=== PATIENT | female | born 1935 | race Caucasian/White ===

== ENCOUNTER 2017-08-19 14:06 | Observation (INO) | payer MEDICARE, BC ==
[~2017-08-19 14:06] MED LIST: ACETAMINOPHEN500 M1 PO; HCTZ25 MG PO; METAMUCIL PACKE1 PKT PO; TEMAZEPAM PO; TEMAZEPAM30 MG PO; ULTRAM50 MG PO
--- NOTE | 2017-08-19 15:15 | NUR ---
RECIEVED PT TO ROOM [address] POTTER'S OFFICE DIRECT ADMISSION. PIV SITED TO LEFT INNER FORARM 22 GA X 1 STICK TOLERATED WELL.
[2017-08-19 16:03] LABS: BASOPHILS 0.3 % (0-2); EOSINOPHILS 0.8 % (0-7); HEMATOCRIT 37.4 % (36.0-48.0); HEMOGLOBIN 12.2 g/dL (12-16); IMMATURE GRANULOCYTES 0.3 % (0-5); LYMPHOCYTES 26.7 % (15-50); MCH 33.1 pg (26.0-34.0); MCHC 32.6 g/dL (31.0-37.0); MCV 101.4 fL (80.0-100.0); MEAN PLATELET VOLUME 10.5 fL (7.4-10.4); MONOCYTES 6.2 % (2-11); NEUTROPHILS 65.7 % (40-80); RBC 3.69 10x6/uL (4.00-5.40); RDW 14.1 % (11.5-14.5); WBC 6.3 10x3/uL (4.8-10.8)
[2017-08-19 16:04] LABS: PLATELET COUNT 192 10x3/uL (130-400)
[2017-08-19 16:11] VITALS: BMI 26.4
[2017-08-19 16:18] VITALS: BP 160/62
[2017-08-19 16:18] LABS: ALBUMIN 3.3 g/dL (3.4-5.0); ANION GAP 10.5 mmol/L (8-16); BILIRUBIN - TOTAL 0.5 mg/dL (0.2-1.3); CALCIUM 8.8 mg/dL (8.5-10.1); CARBON DIOXIDE 29.4 mmol/L (21.0-32.0); CREATININE - SERUM 0.9 mg/dL (0.6-1.3); POTASSIUM - SERUM 3.9 mmol/L (3.5-5.1)
[2017-08-19 20:00] VITALS: BP 126/64
--- NOTE | 2017-08-20 02:00 | NUR ---
PT RESTING IN BED WITH NO DISTRESS. RESPIRATIONS EVEN AND UNLABORED. SIDE RAILS X 2. BED LOW. CALL LIGHT IN REACH.
[2017-08-20 04:00] VITALS: BP 137/62
[2017-08-20 06:04] LABS: BASOPHILS 0.2 % (0-2); EOSINOPHILS 2.2 % (0-7); HEMATOCRIT 36.3 % (36.0-48.0); HEMOGLOBIN 12.1 g/dL (12-16); IMMATURE GRANULOCYTES 0.2 % (0-5); MCH 33.8 pg (26.0-34.0); MCHC 33.3 g/dL (31.0-37.0); MCV 101.4 fL (80.0-100.0); MEAN PLATELET VOLUME 10.7 fL (7.4-10.4); MONOCYTES 9.1 % (2-11); NEUTROPHILS 50.3 % (40-80); PLATELET COUNT 201 10x3/uL (130-400); RBC 3.58 10x6/uL (4.00-5.40); RDW 14.2 % (11.5-14.5)
[2017-08-20 06:17] LABS: WBC 4.5 10x3/uL (4.8-10.8)
[2017-08-20 06:34] LABS: ALBUMIN 2.8 g/dL (3.4-5.0); ALKALINE PHOSPHATASE 57 U/L (46-116); ALT (SGPT) 17 U/L (10-68); CALC OSMOLALITY 283 mosm/kg (275-300); CALCIUM 8.7 mg/dL (8.5-10.1); CARBON DIOXIDE 26.8 mmol/L (21.0-32.0); CHLORIDE - SERUM 107 mmol/L (98-107); CREATININE - SERUM 0.7 mg/dL (0.6-1.3); GLUCOSE 94 mg/dL (74-106); POTASSIUM - SERUM 3.5 mmol/L (3.5-5.1); PROTEIN - SERUM 5.8 g/dL (6.4-8.2); SODIUM 142 mmol/L (136-145); eGFR NON AFRICAN AMERICAN 85 mL/min (90-120)
[2017-08-20 06:35] LABS: UREA NITROGEN 14 mg/dL (7-18)
--- NOTE | 2017-08-20 08:10 | NUR ---
RECIEVED PT DURING WALKING ROUNDS, PT COMPLAINS OF PAIN OF A 10 ON A SCALE OF 1-10. MEDICATION TO BE GIVEN BY PRINT MACHINE OPERATOR NURSE. ASSESSMENT DONE PER FLOWSHEET. BED IN LOW POSITION AND CALL LIGHT WITHIN REACH. WILL CONTINUE TO MONITOR.
[2017-08-20 08:19] VITALS: BP 170/69
[2017-08-20] MEDS ORDERED: MACROBID100 MG PO (10:04)
[2017-08-20] MEDS ORDERED: LEUCOVORIN CALCI5 MG PO (10:05)
[2017-08-20] MEDS ORDERED: PREDNISONE2.5 MG PO (10:05)
[2017-08-20] MEDS ORDERED: PREVACID15 MG PO (10:07)
[2017-08-20] MEDS ORDERED: METHOTREXATE2.5 MG PO (10:09)
[2017-08-20] MEDS ORDERED: ESTRACE 0.0142.5 GM VG (10:10)
[2017-08-20] MEDS ORDERED: ZOFRAN ODT4 MG/UDTAB PO (10:11)
[2017-08-20] MEDS ORDERED: CALCIUM 500 +1 EAC3 PO (10:15)
[2017-08-20] MEDS ORDERED: MAG-OX 400 MG400 MG PO (10:15)
[2017-08-20] MEDS ORDERED: BIOTIN5 MG PO (10:17)
[2017-08-20] MEDS ORDERED: [UNRECOGNIZED DRUG - OTHER] PO (10:17)
[2017-08-20] MEDS ORDERED: VITAMIN B-122500 MCG PO (10:18)
[2017-08-20 12:06] VITALS: BMI 26.4
[2017-08-20 12:16] VITALS: BP 165/62
[2017-08-20 12:37] LABS: APPEARANCE HAZY (CLEAR); BILIRUBIN NEGATIVE (NEGATIVE); COLOR YELLOW (YELLOW); GLUCOSE NEGATIVE (NEGATIVE); KETONE NEGATIVE (NEGATIVE); NITRITE NEGATIVE (NEGATIVE); PROTEIN NEGATIVE (NEGATIVE); SPECIFIC GRAVITY 1.015 (1.005-1.020); UROBILINOGEN NORMAL (NORMAL); WHITE CELLS - URINE OCC /hpf (0-5)
[2017-08-20 12:38] LABS: BACTERIA FEW /hpf (NONE SEEN); EPITHELIAL CELLS 0-5 /hpf (0-5); MUCUS <1+ /lpf (NONE SEEN)
[2017-08-20 12:40] LABS: RED CELLS - URINE RARE /hpf (0-5)
[2017-08-20] MEDS ORDERED: ULTRAM50 MG PO (14:24)
[2017-08-20 16:12] VITALS: BP 146/57
[2017-08-20 19:30] VITALS: BP 143/60
--- NOTE | 2017-08-20 22:46 | NUR ---
2049)REC'D. FROM SURGERY.AAO X3 DTR. AT BEDSIDE.DEMANDING TO BE DISCHARGED NOW."STATES WAS SUPPOSE TO BE DC'D AT 1PM.INSTRUCTED WILL LOOK TO SEE WHAT SAYS ABOUT GOING HOME TONITE.UP TO BATHRM. TO VOID C/O SOME VAGINAL BURNING NO BLEEDING NOTTED.2129)DISCUSSED DISCHARGE INSTRUCTIONS WITH PATIENT AND DTR.BOTH VOICES UNDERSTANDING. IV DC'D.IN W/C DC'D VIA WC WITH MIXING TUMBLER OPERATOR.
--- NOTE | 2017-08-21 08:04 | OP ---
PATIENT NAME: HASMUKH RAYGOZA MEDICAL RECORD: [id number] :35 LOCATION:D.MS [facility] ADMISSION DATE:08/19/17 SURGEON: MANUEL GOMEZ MD DATE OF OPERATION: 08/20/2017 SURGEON: Manuel Gomez MD. ANESTHESIA: MAC by Julio Razo CRNA. PREOPERATIVE DIAGNOSIS: Microhematuria. PROCEDURE: Cystoscopy. FINDINGS: Single ureteral orifices bilaterally. Diffuse bladder inflammation, possibly from methotrexate exposure. No bladder tumors. ESTIMATED BLOOD LOSS: None. CLINICAL HISTORY: This is an 82-year-old female with a long history of lupus as well as rheumatoid arthritis. She has been treated with IV methotrexate and other immunosuppressive in the past. She is currently in the hospital with severe back pain, most likely due to degenerative disc disease. A CT scan of the abdomen and pelvis showed no lesions in the kidneys. There are no stones and no hydronephrosis. She was found on admission to have trace hematuria on the urinalysis. Urine culture has been sent, but results are still pending. She comes now to have cystoscopy performed. She was given Ancef 1 gram IV pilot control operator to the OR. DESCRIPTION OF PROCEDURE: The patient was given IV sedation. She was placed in the dorsal lithotomy position, prepped and draped. A 17-Yoruba cystoscope with 30-degree lens was used for visualization with normal saline for irrigation. Findings are as outlined above. The bladder was then emptied through the cystoscope sheath and the scope was removed. The patient will be sent back to her room. She can be discharged home with pain medications for back pain. TRANSINT:[id number] Voice Confirmation ID: [id number] DOCUMENT ID: [id number] MANUEL GOMEZ MD at 0804 CC: [id number] DICTATION DATE: 08/20/171947 STITCHER TAPE CONTROLLED MACHINE: 08/20/172005 DIS IN 08/20/17 [address] [place] [address]
--- NOTE | 2017-09-24 10:49 | DS ---
PATIENT:HASMUKH RAYGOZA :35 MEDICAL RECORD: [id number] DISCHARGE SUMMARY ADMISSION DATE: 08/19/17 DISCHARGE DATE: 08/20/17 This is a discharge dated 08/20/2017 from the inpatient hospital. DISCHARGE DIAGNOSES: 1. Right-sided flank pain. 2. Degenerative disk disease with scoliosis. 3. Systemic lupus erythematosus. 4. Rheumatoid arthritis. 5. Hypertension. 6. Obstructive sleep apnea, on CPAP. 7. Diverticulosis. 8. Diffuse bladder inflammation. CONSULTS THIS HOSPITALIZATION: Neurology with Dr. Bedolla. PROCEDURES THIS HOSPITALIZATION: Cystoscopy on 08/20/2017. HOSPITAL COURSE: Full H&P is located elsewhere on the chart on this 82-year-old female who was admitted with complaints of right flank and back pain. She had medications for pain control and continued appropriate home medications. Electrolytes were managed by protocol. She was seen by urology, Dr. Bedolla and underwent cystoscopy on 08/20/2017 with findings as listed above. She was stable post-procedure and considered stable for discharge home on 08/20/2017. DISCHARGE MEDICATIONS: As per discharge medication reconciliation. DISCHARGE DISPOSITION: The patient is discharged home. She will continue her current diet and level of activity and will follow up with primary care and consultants as directed. At least 30 minutes was spent in this discharge activity. TRANSINT:[id number] Voice Confirmation ID: [id number] DOCUMENT ID: [id number] Dictated By: JEWEL RIVAS I have interviewed/examined the above patient and agree with these documented findings. ARNAUD HARRIS MD at 1358 at 1049 CC: [id number] DICTATION DATE: 09/15/17 1624 BRAND MANAGER: 09/15/17 1816 DIS IN 08/20/17 [facility] [address] [place] [address]
[2017-10-02] MEDS ORDERED: FOLATE0.4 MG PO (14:22)
== END 2017-08-20 23:43 | disposition home or self-care (01) ==
LOC: OBSVTIME 14:06 → D.MS 14:06
PROVIDERS: Family Medicine; ADMIT Family Medicine
DX: R31.29 Other microscopic hematuria (principal); I10 Essential (primary) hypertension; G47.33 Obstructive sleep apnea (adult) (pediatric); M32.9 Systemic lupus erythematosus, unspecified; M06.9 Rheumatoid arthritis, unspecified; M51.16 Intervertebral disc disorders with radiculopathy, lumbar region

== ENCOUNTER 2017-10-03 03:25 | Day surgery (SDC) | payer MEDICARE, BC ==
[~2017-10-03] VITALS: Ht 162.6 cm; Wt 72.1 kg
[~2017-10-03 03:25] MED LIST changes: +BIOTIN5 MG PO; +CALCIUM 500 +1 EAC3 PO; +ESTRACE 0.0142.5 GM VG; +FOLATE0.4 MG PO; +LEUCOVORIN CALCI5 MG PO; +MACROBID100 MG PO; +MAG-OX 400 MG400 MG PO; +METHOTREXATE2.5 MG PO; +PREDNISONE2.5 MG PO; +PREVACID15 MG PO; +VITAMIN B-122500 MCG PO; +ZOFRAN ODT4 MG/UDTAB PO; +[UNRECOGNIZED DRUG - OTHER] PO
[2017-10-03 06:56] VITALS: BP 128/59; Ht 162.6 cm; Wt 72.1 kg
[2017-10-03 07:20] LABS: HEMATOCRIT 35.4 % (36.0-48.0); HEMOGLOBIN 11.7 g/dL (12-16); MCH 33.1 pg (26.0-34.0); MCHC 33.1 g/dL (31.0-37.0); MEAN PLATELET VOLUME 10.1 fL (7.4-10.4); RBC 3.54 10x6/uL (4.00-5.40); RDW 15.1 % (11.5-14.5); WBC 3.8 10x3/uL (4.8-10.8)
--- NOTE | 2017-10-03 10:46 | NUR ---
1045 DISCHARGE INSTRUCTIONS COMPLETE. PT HAS NO QUESTIONS OR CONCERNS AT THIS TIME. PT ESCORTED OUT BY VOLUNTEER.
--- NOTE | 2017-10-03 11:36 | OP ---
PATIENT NAME: HASMUKH RAYGOZA MEDICAL RECORD: [id number] :35 LOCATION:D.OPS ADMISSION DATE: SURGEON: MANUEL GOMEZ MD DATE OF OPERATION: 10/03/2017 SURGEON: Manuel Gomez MD ANESTHESIA: MAC by Dr. Adame. PREOPERATIVE DIAGNOSES: Urge urinary incontinence, possible interstitial cystitis. PROCEDURES: Cystoscopy, intravesical Botox injection 100 units. FINDINGS: Single ureteral orifices bilaterally. No bladder tumors. Inflammation of the bladder dome. BLOOD LOSS: None. CLINICAL HISTORY: This is an 82-year-old female who has a history of urge urinary incontinence. On cystoscopy, she had inflammation of the bladder. She is using methotrexate for lupus and rheumatoid arthritis, which I suspect is contributing to the bladder inflammation. For the urge incontinence, she did try Myrbetriq, which did not help. She did try VESIcare 5 mg, which did help the urge incontinence somewhat, but she found the constipation intolerable. All of the other anticholinergics have similar side effects. Therefore, I suggested that she try intravesical Botox or intravesical Rimso, which would treat interstitial cystitis. She elected to try intravesical Botox. She is allergic to CODEINE and ADHESIVE TAPE. She was given Ancef 1 gram IV receptionist doctor's office to the OR. DESCRIPTION OF PROCEDURE: The patient was placed in lithotomy position after having been given IV sedation. She was then prepped and draped. Cystoscopy was performed using a 20-Armenian cystoscope with 30-degree lens. Findings are as outlined above. At 10 different locations and avoiding the ureteral orifices on the trigone of the bladder, we injected 1 cc of Botox solution at 10 different sites. The 100 units of Botox was dissolved in 10 mL of injectable preservative-free normal saline. Thus each mL of Botox solution had 10 units. Once the procedure was done, the bladder was emptied through the cystoscope sheath. The scope was then completely removed. I will see the patient in followup in 2 weeks' time by which time the Botox should have an affect. TRANSINT:[id number] Voice Confirmation ID: [id number] DOCUMENT ID: [id number] MANUEL GOMEZ MD at 1136 CC: [id number] DICTATION DATE: 10/03/17 1000 BALL HOLDER: 10/03/17 1111 [facility] [place] 10/03/17 [address] [id number] [place] [address]
== END 2017-10-03 10:50 | disposition home or self-care (01) ==
LOC: D.OPS 03:25 → D.PAN 08:30 → D.OPS 08:30
PROVIDERS: Anesthesiology
DX: N30.90 Cystitis, unspecified without hematuria (principal); N39.41 Urge incontinence; M32.9 Systemic lupus erythematosus, unspecified; M06.9 Rheumatoid arthritis, unspecified; Z88.5 Allergy status to narcotic agent; Z88.8 Allergy status to other drugs, medicaments and biological substances; Z01.812 Encounter for preprocedural laboratory examination

== ENCOUNTER → 2018-06-03 16:17 | Outpatient (CLI) | payer MEDICARE, BC ==
[2017-10-03 06:56] VITALS: BMI 27.3
[~2018-06-03 16:17] MED LIST changes: +CYCLOBENZAPRINE10 MG PO
== END | disposition home or self-care (01) ==
LOC: D.LABREF 16:17
DX: N39.0 Urinary tract infection, site not specified (principal)

== ENCOUNTER 2018-06-17 05:30 | Day surgery (SDC) | payer MEDICARE, BC ==
[2018-06-16 09:43] LABS: BASOPHILS 0.2 % (0-2); HEMOGLOBIN 12.1 g/dL (12-16); IMMATURE GRANULOCYTES 0.2 % (0-5); LYMPHOCYTES 29.9 % (15-50); MCH 32.5 pg (26.0-34.0); MCHC 32.7 g/dL (31.0-37.0); MCV 99.5 fL (80.0-100.0); MEAN PLATELET VOLUME 9.7 fL (7.4-10.4); NEUTROPHILS 60.7 % (40-80); PLATELET COUNT 192 10x3/uL (130-400); RBC 3.72 10x6/uL (4.00-5.40); RDW 14.7 % (11.5-14.5)
[2018-06-16 09:54] LABS: CALC OSMOLALITY 282 mosm/kg (275-300); CALCIUM 8.4 mg/dL (8.5-10.1); CHLORIDE - SERUM 108 mmol/L (98-107); CREATININE - SERUM 0.6 mg/dL (0.6-1.3); GLUCOSE 92 mg/dL (74-106); POTASSIUM - SERUM 4.2 mmol/L (3.5-5.1); SODIUM 143 mmol/L (136-145); UREA NITROGEN 8 mg/dL (7-18); eGFR NON AFRICAN AMERICAN > 90 mL/min (90-120)
[~2018-06-17] VITALS: Ht 162.6 cm; Wt 70.3 kg
--- NOTE | ~2018-06-17 | OP ---
PATIENT NAME: HASMUKH RAYGOZA MEDICAL RECORD: [id number] :35 LOCATION:D.OPS ADMISSION DATE: SURGEON: MANUEL GOMEZ MD DATE OF OPERATION: 06/17/2018 SURGEON: Manuel Gomez MD ANESTHESIA: MAC by Gabe Rodriguez CRNA. DIAGNOSES: Hematuria, urge urinary incontinence. PROCEDURES: Cystoscopy, intravesical Botox injection 100 units. FINDINGS: Diffuse bladder inflammation, single ureteral orifices bilaterally. No bladder tumors. BLOOD LOSS: None. CLINICAL HISTORY: This is an 83-year-old female, who has urge urinary incontinence. She has tried several oral medications without any effect. In September of 2017, she had intravesical Botox injection and it did treat her urge urinary incontinence very well. It wore off a few months ago, but she somehow did not have an appointment to see me until now. She would like to have a repeat treatment of the intravesical Botox. In the interim, she developed urinary tract infection and she had an episode of gross hematuria. I believe she has had the hematuria worked up in the past. We will be performing a generalized cystoscopy anyway for this procedure and I will look in the bladder to check for any other causes of hematuria. SHE IS ALLERGIC TO ADHESIVE TAPE, CODEINE, AND AMBIEN. We gave her Ancef options trader to the OR. DESCRIPTION OF PROCEDURE: The patient was given IV sedation. She was then placed in dorsal lithotomy position and prepped and draped. A 21-Upper Sorbian cystoscope with 30-degree lens was used for visualization. She has a very vascular urethra. No tumors were seen anywhere. She has single ureteral orifices on both sides. There is some diffuse bladder inflammation, most likely from her recent cystitis. At 10 different locations, we injected 1 mL of Botox solution. Each Botox milliliter contains 10 units of Botox. We avoided the ureteral orifices and the trigone region. Once the 10 injections were done, the procedure was completed. The bladder was emptied through the cystoscope sheath. The scope was then removed entirely. I will see the patient in followup in 2 weeks' time to check on her voiding symptoms. TRANSINT:[id number] Voice Confirmation ID: [id number] DOCUMENT ID: [id number] MANUEL GOMEZ MD at 0822 CC: [id number] DICTATION DATE: 06/17/18807 HEAD END DESIZING MACHINE OPERATOR: 06/17/18 08 REG [facility] [address] [id number]
[~2018-06-17 05:30] MED LIST changes: -CYCLOBENZAPRINE10 MG PO
[2018-06-17] MEDS ORDERED: CYCLOBENZAPRINE10 MG PO (06:13)
[2018-06-17 06:15] VITALS: BP 123/68; Ht 162.6 cm; Wt 70.3 kg
== END 2018-06-17 10:18 | disposition home or self-care (01) ==
LOC: D.OPS 05:30 → D.PAN 07:30 → D.OPS 10:18
PROVIDERS: Anesthesiology
DX: N39.41 Urge incontinence (principal); R31.9 Hematuria, unspecified; Z01.812 Encounter for preprocedural laboratory examination

== ENCOUNTER → 2018-07-25 18:31 | Outpatient (CLI) | payer MEDICARE, BC ==
[2018-06-17 06:15] VITALS: BMI 26.6
[~2018-07-25 18:31] MED LIST changes: +CYCLOBENZAPRINE10 MG PO
== END | disposition home or self-care (01) ==
LOC: D.LABREF 18:31
DX: R31.9 Hematuria, unspecified (principal); D72.829 Elevated white blood cell count, unspecified

== ENCOUNTER → 2018-08-05 19:09 | Outpatient (CLI) | payer MEDICARE, BC ==
[2018-06-17 06:15] VITALS: BMI 26.6
== END | disposition home or self-care (01) ==
LOC: D.LABREF 19:09
DX: D72.829 Elevated white blood cell count, unspecified (principal); R31.9 Hematuria, unspecified

== ENCOUNTER 2018-12-01 20:34 | Observation (INO) | payer MEDICARE, BC ==
[~2018-12-01] VITALS: Ht 162.6 cm; Wt 69.1 kg
[~2018-12-01 20:34] MED LIST changes: -FOLATE0.4 MG PO; +FOLIC ACID1 MG PO
[2018-12-01] MEDS ORDERED: ZANAFLEX2 M1 PO (20:45)
[2018-12-01] MEDS ORDERED: TEMAZEPAM30 MG PO (20:46)
[2018-12-01 21:15] LABS: BASOPHILS 0.2 % (0-2); EOSINOPHILS 0.7 % (0-7); HEMOGLOBIN 11.5 g/dL (12-16); IMMATURE GRANULOCYTES 0.2 % (0-5); LYMPHOCYTES 17.4 % (15-50); MCH 32.9 pg (26.0-34.0); MCHC 32.9 g/dL (31.0-37.0); MEAN PLATELET VOLUME 9.9 fL (7.4-10.4); MONOCYTES 2.5 % (2-11); PLATELET COUNT 207 10x3/uL (130-400); RDW 14.8 % (11.5-14.5); WBC 5.7 10x3/uL (4.8-10.8)
[2018-12-01 21:25] LABS: APTT 27.7 SECONDS (22.8-39.4); INR 0.99 (0.85-1.17); PROTIME 12.6 SECONDS (11.6-15.0)
--- NOTE | 2018-12-01 21:30 | NUR ---
PATIENT AWAKE AND ALERT, COLOR WNL FOR RACE. RESPIRATIONS EVEN AND UNLABORED. NO NEEDS NOTED. UPDATED ON PLAN OF CARE AND DELAYS IN CARE. WILL CONTINUE TO MONITOR.
[2018-12-01 21:35] LABS: ALBUMIN 3.1 g/dL (3.4-5.0); ALKALINE PHOSPHATASE 76 U/L (46-116); ALT (SGPT) 23 U/L (10-68); BILIRUBIN - TOTAL 0.33 mg/dL (0.2-1.3); CALC OSMOLALITY 273 mosm/kg (275-300); CALCIUM 8.4 mg/dL (8.5-10.1); CARBON DIOXIDE 27.4 mmol/L (21.0-32.0); CHLORIDE - SERUM 100 mmol/L (98-107); CREATININE - SERUM 0.6 mg/dL (0.6-1.3); GLUCOSE 127 mg/dL (74-106); POTASSIUM - SERUM 4.4 mmol/L (3.5-5.1); PROTEIN - SERUM 6.5 g/dL (6.4-8.2); SODIUM 136 mmol/L (136-145); UREA NITROGEN 13 mg/dL (7-18); eGFR NON AFRICAN AMERICAN > 90 mL/min (90-120)
[2018-12-01 21:52] LABS: CKMB 0.4 U/L (0.0-3.6); CREATINE KINASE 37 UL (21-215); MAGNESIUM - SERUM 1.8 mg/dL (1.8-2.4); TROPONIN-I < 0.017 ng/mL (0.000-0.060)
--- NOTE | 2018-12-01 22:30 | NUR ---
PATIENT AWAKE AND ALERT, C0LOR WNL FOR RACE. WILL CONTINUE TO MONITOR.
--- NOTE | 2018-12-01 23:44 | NUR ---
ADMIT TO ROOM 2119 FROM ER. ACCOMPANIED BY FRIEND. ALERT/ORIENTED. ADMISSION HISTORY AND ASSESSMENT COMPLETED. HOME MEDS REVIEWED. PLAN OF CARE INITIATED.
[2018-12-02] VITALS (7 sets, daily range): BP systolic 116–152; BP diastolic 38–64; Ht 162.6 cm; Wt 69.1 kg
--- NOTE | 2018-12-02 01:50 | NUR ---
PT RESTING IN BED WITH NO DISTRESS. DAUGHTER AT BEDSIDE. 66 SR PER TELEMETRY.
--- NOTE | 2018-12-02 08:16 | NUR ---
ASSESSMENT DONE. DENIES NEEDS.
--- NOTE | 2018-12-02 17:32 | NUR ---
WITHOUT CHANGES OR DISTRESS NOTED AT THIS TIME. FAMILY AT SIDE. DENIES NEEDS.
--- NOTE | 2018-12-02 19:43 | NUR ---
PT RESTING IN BED. WAITING TO HEAR TRUMPS SPEECH ON TV. PT ASKED ABOUT SLEEP MED COMING WITH NIGHT MEDS. PT DENIES ANY OTHER NEEDS. NO S/S OF DISTRESS. NAME AND DATE PLACED ON BOARD. PT WILL CALL FOR ASSIST WHEN NEEDED. WILL CPOC
--- NOTE | 2018-12-02 23:50 | NUR ---
PT ASLEEP. RESP EVEN AND UNLABORED. NO S/S OF DISTRESS. PT WILL CALL FOR ASSIST WHEN NEEDED. WILL CPOC
[2018-12-03 00:06] VITALS: BP 116/55
--- NOTE | 2018-12-03 02:34 | NUR ---
PT IS 62 NORMAL SINUS ON THE MONITOR
[2018-12-03 04:00] VITALS: BP 119/46
[2018-12-03 05:37] LABS: BASOPHILS 0.4 % (0-2); EOSINOPHILS 1.4 % (0-7); HEMATOCRIT 34.6 % (36.0-48.0); HEMOGLOBIN 11.4 g/dL (12-16); IMMATURE GRANULOCYTES 0.2 % (0-5); LYMPHOCYTES 29.7 % (15-50); MCHC 32.9 g/dL (31.0-37.0); MCV 100.3 fL (80.0-100.0); MEAN PLATELET VOLUME 10.3 fL (7.4-10.4); MONOCYTES 7.4 % (2-11); NEUTROPHILS 60.9 % (40-80); PLATELET COUNT 197 10x3/uL (130-400); RBC 3.45 10x6/uL (4.00-5.40); RDW 15.1 % (11.5-14.5); WBC 5.1 10x3/uL (4.8-10.8)
[2018-12-03 05:52] LABS: ALBUMIN 2.8 g/dL (3.4-5.0); ALKALINE PHOSPHATASE 68 U/L (46-116); ALT (SGPT) 19 U/L (10-68); BILIRUBIN - TOTAL 0.66 mg/dL (0.2-1.3); CALC OSMOLALITY 286 mosm/kg (275-300); CALCIUM 8.3 mg/dL (8.5-10.1); CARBON DIOXIDE 27.7 mmol/L (21.0-32.0); CHLORIDE - SERUM 108 mmol/L (98-107); CREATININE - SERUM 0.7 mg/dL (0.6-1.3); GLUCOSE 82 mg/dL (74-106); POTASSIUM - SERUM 3.9 mmol/L (3.5-5.1); PROTEIN - SERUM 5.8 g/dL (6.4-8.2); SODIUM 144 mmol/L (136-145); TROPONIN-I < 0.017 ng/mL (0.000-0.060); UREA NITROGEN 14 mg/dL (7-18); eGFR NON AFRICAN AMERICAN 85 mL/min (90-120)
--- NOTE | 2018-12-03 06:25 | NUR ---
PT ASLEEP. AROUSES TO NURSE ENTERING ROOM. EDUCATION GIVEN ON PROTONIX. PT VERBALIZED UNDERSTANDING. PT STATES NO BM SINCE ADMIT. WILL CHECK ORDERS AND TELL NURSE GETTING REP0RT. PT DENIES ANY NEEDS, NO S/S OF DISTRESS. WILL CPOC
[2018-12-03 07:47] VITALS: BP 129/54
--- NOTE | 2018-12-03 09:45 | NUR ---
TELEMETRY SR. UP TO SHOWER WITH CLAIMS ATTORNEY ASSIST. WILL CONT. PLAN OF CARE.
[2018-12-03 11:10] VITALS: BP 112/57
--- NOTE | 2018-12-03 15:09 | NUR ---
IV AND TELEMETRY DCD. DC PLANS GIVEN. UNDERSTANDING VOICED. ESCORTED TO CAR BY W/C.
--- NOTE | 2018-12-04 12:52 | MORECARE ---
CASE MANAGEMENT DISCHARGE SUMMARY PATIENT: HASMKUH RAYGOZA UNIT: [id number] ADM DATE: 12/01/18 AGE: 83 : 35 SEX: F ROOM/BED: D.1939 AUTHOR: LYNNE HIGGINS PHYSICIAN: REFERRING PHYSICIAN: JORGE VERMA MD DATE OF SERVICE: 12/04/18 Discharge Plan Patient Name: HASMUKH RAYGOZA Facility: [facility]:[place] : 1935 Planned Disposition: Home Anticipated Discharge Date: 12/03/18 Discharge Date: 12/03/2018 Expected LOS: 2 Initial Reviewer: [email or web address] Initial Review Date: 12/04/2018 Generated: 12/04/18 1:51 pm Coverage Notice Reviewer: [email or web address] Angel Cordero Notice Issued Date-Time: 12/02/2018 15:00 Notice Type: Medicare Outpatient Observation Notice Notice Delivered To: Other Relationship to Patient: Self Inventory Associate And Driver Name: Delivery Method: HAND - Hand Delivered Indy Days: Prior Verbal Notification: Recipient Understood Notice: Yes Recipient Signature: Yes Med Rec Note Co-signed by Attending: Coverage Notice Comment: Patient Name: HASMUKH RAYGOZA Page [phone] at 1252 All edits/amendments must be made on the electronic document DICTATION DATE: 12/04/18 1251 TEST ANALYST: RUSS 12/04/18 1251 RPT#: [id number] DC DATE:12/03/18 STATUS: DIS IN [id number] [place] [address] END OF REPORT
== END 2018-12-03 15:10 | disposition home or self-care (01) ==
LOC: D.ER 20:34 → OBSVTIME 22:48 → D.M2 22:48
PROVIDERS: Family Medicine; ADMIT Family Medicine
DX: I20.9 Angina pectoris, unspecified (principal); I10 Essential (primary) hypertension; R06.00 Dyspnea, unspecified; E03.9 Hypothyroidism, unspecified; G47.33 Obstructive sleep apnea (adult) (pediatric); K21.9 Gastro-esophageal reflux disease without esophagitis; M32.9 Systemic lupus erythematosus, unspecified; D86.9 Sarcoidosis, unspecified

== ENCOUNTER 2019-06-02 08:21 | Day surgery (SDC) | payer MEDICARE, BC ==
[~2019-06-02] VITALS: Ht 162.6 cm; Wt 67.1 kg
[~2019-06-02 08:21] MED LIST changes: +ZANAFLEX2 M1 PO
[2019-06-02 08:47] LABS: BASOPHILS 0.4 % (0-2); EOSINOPHILS 1.7 % (0-7); HEMATOCRIT 36.1 % (36.0-48.0); HEMOGLOBIN 11.9 g/dL (12-16); IMMATURE GRANULOCYTES 0.2 % (0-5); LYMPHOCYTES 25.4 % (15-50); MCH 32.3 pg (26.0-34.0); MCV 98.1 fL (80.0-100.0); MEAN PLATELET VOLUME 9.4 fL (7.4-10.4); MONOCYTES 6.3 % (2-11); PLATELET COUNT 204 10x3/uL (130-400); RBC 3.68 10x6/uL (4.00-5.40); RDW 14.5 % (11.5-14.5); WBC 4.6 10x3/uL (4.8-10.8)
[2019-06-02 08:49] LABS: CALC OSMOLALITY 276 mosm/kg (275-300); CALCIUM 8.7 mg/dL (8.5-10.1); CARBON DIOXIDE 29.5 mmol/L (21.0-32.0); CHLORIDE - SERUM 105 mmol/L (98-107); CREATININE - SERUM 0.6 mg/dL (0.6-1.3); GLUCOSE 96 mg/dL (74-106); POTASSIUM - SERUM 4.5 mmol/L (3.5-5.1); SODIUM 139 mmol/L (136-145); UREA NITROGEN 9 mg/dL (7-18); eGFR NON AFRICAN AMERICAN > 90 mL/min (90-120)
[2019-06-02 09:34] VITALS: BP 145/77; Ht 162.6 cm; Wt 67.1 kg
--- NOTE | 2019-06-02 13:53 | NUR ---
1335 IV REMOVED AND DRESSING APPLIED
--- NOTE | 2019-06-02 14:36 | OP ---
PATIENT NAME: HASMUKH RAYGOZA MEDICAL RECORD: [id number] :35 LOCATION:D.OPS ADMISSION DATE: SURGEON: MANUEL GOMEZ MD DATE OF OPERATION: 06/02/2019 SURGEON: Manuel Gomez MD ANESTHESIA: TIVA by Denisha Alexis CRNA DIAGNOSIS: Urethral stricture. PROCEDURE: Flexible cystoscopy, urethral dilation to 30-Bhutanese. FINDINGS: On cystoscopy, no bladder tumors. An inflamed bladder with glomerulations. Vulvar atrophy with stenosis. ESTIMATED BLOOD LOSS: None. CLINICAL HISTORY: This is an 84-year-old female who has a complaint of a diminished urinary flow. There is no hesitancy, but she has to lean forward in order to be able to void. She has had 3 previous pubovaginal slings and she still suffers from stress incontinence. She is currently on vaginal estrogen cream to counteract vaginal atrophy. As her symptoms are suggestive of a urethral stricture, we are performing cystoscopy today. We will also be dilating the urethra to 30-Bhutanese. SHE IS ALLERGIC TO ZOLPIDEM, CODEINE AND ADHESIVES. She was given Ancef environmental emergencies planner to the OR. DESCRIPTION OF PROCEDURE: The patient was given IV sedation. She was placed in lithotomy position and prepped and draped. A flexible cystoscope was introduced through the urethra. No bladder tumors were seen. There was some bladder inflammation noted. The bladder was not trabeculated. The scope was then removed. We introduced sounds progressively until we reached 30-Bhutanese in size. Once this was done, the procedure was terminated. I will see the patient in followup in 1 months' time to check on her voiding symptoms. TRANSINT:[id number] Voice Confirmation ID: [id number] DOCUMENT ID: [id number] MANUEL GOMEZ MD at 1436 CC: [id number] DICTATION DATE: 06/02/19 1309 MANUAL TESTER: 06/02/19 1347 [facility] 06/02/19 [place] [id number]
== END 2019-06-02 13:45 | disposition home or self-care (01) ==
LOC: D.OPS 08:21
PROVIDERS: Anesthesiology; ATTEND Urology
DX: N35.92 Unspecified urethral stricture, female (principal)

== ENCOUNTER → 2019-07-01 17:27 | Outpatient (CLI) | payer MEDICARE, BC ==
[2019-06-02 09:34] VITALS: BMI 25.4
[~2019-07-01 17:27] MED LIST changes: +ASPIRIN EC81 M1 PO
== END | disposition home or self-care (01) ==
LOC: D.LABREF 17:27
PROVIDERS: ATTEND Urology
DX: R31.9 Hematuria, unspecified (principal)

== ENCOUNTER 2019-07-16 06:07 | Day surgery (SDC) | payer MEDICARE, BC ==
[~2019-07-16] VITALS: Ht 162.6 cm; Wt 65.8 kg
[2019-07-16 06:39] LABS: EOSINOPHILS 2.3 % (0-7); IMMATURE GRANULOCYTES 0.5 % (0-5); LYMPHOCYTES 28.2 % (15-50); MCH 32.6 pg (26.0-34.0); MCHC 34.3 g/dL (31.0-37.0); MCV 95.1 fL (80.0-100.0); MEAN PLATELET VOLUME 9.8 fL (7.4-10.4); MONOCYTES 12.5 % (2-11); NEUTROPHILS 55.5 % (40-80); PLATELET COUNT 208 10x3/uL (130-400); RBC 3.68 10x6/uL (4.00-5.40); RDW 15.3 % (11.5-14.5); WBC 3.8 10x3/uL (4.8-10.8)
[2019-07-16 06:55] LABS: ANION GAP 11.2 mmol/L (8-16); CALCIUM 8.5 mg/dL (8.5-10.1); CARBON DIOXIDE 27.4 mmol/L (21.0-32.0); CREATININE - SERUM 0.8 mg/dL (0.6-1.3); POTASSIUM - SERUM 4.6 mmol/L (3.5-5.1)
[2019-07-16 07:01] VITALS: BP 165/66; Ht 162.6 cm; Wt 65.8 kg
--- NOTE | 2019-07-16 10:35 | NUR ---
1000-DISCHARGE CRITERIA MET. REVIEWED POST OPERATIVE INSTRUCTIONS WITH PT AND GRANDDAUGHTER AT BEDSIDE. VERBALIZED UNDERSTANDING. REMOVED IV WITH CATH INTACT,DISPOSED INTO SHARPS CONTAINER. COVERED SITE WITH BANDAID. NO BLEEDING OR HEMATOMA OBSERVED. ESCORTED OUT VIA W/C WITH GRANDDAUGHTER DRIVING HOME
--- NOTE | 2019-07-16 11:38 | OP ---
PATIENT NAME: HASMUKH RAYGOZA MEDICAL RECORD: [id number] :35 LOCATION:D.OPS ADMISSION DATE: SURGEON: MANUEL GOMEZ MD DATE OF OPERATION: 07/16/2019 SURGEON: Manuel Gomez MD ANESTHESIA: TIVA by Gabe Rodriguez CRNA. DIAGNOSIS: Urge urinary incontinence. PROCEDURES: Cystoscopy and intravesical Botox injection 100 units. FINDINGS: Inflamed bladder with no bladder tumors. Single ureteral orifices bilaterally. BLOOD LOSS: None. CLINICAL HISTORY: This is an 84-year-old female, who had issues with urge urinary incontinence. She had cystoscopy and urethral dilation on 06/02/2019. A very inflamed bladder was noted and intravesical Botox was given, but it did not work for her. She has urge urinary incontinence, and Myrbetriq and VESIcare have failed. She does have lupus being treated with methotrexate, which may lead to the bladder inflammation. She comes now for cystoscopy and intravesical Botox injection. SHE IS ALLERGIC TO CODEINE, TAPE, AND AMBIEN. She was given Ancef internal corrosion specialist to the OR. DESCRIPTION OF PROCEDURE: The patient was given IV sedation. She was then placed in the lithotomy position and prepped and draped. A 21-Khmer cystoscope with 30-degree lens was used for visualization. No bladder tumors were seen. At 10 different locations, excluding the ureteral orifices and the trigone, 1 mL of intravesical Botox solution was injected into the bladder muscle. Each milliliter had 10 units of Botox dissolved in it. Once the procedure was completed, the bladder was emptied through the cystoscope sheath. The scope was removed. The patient will be seen in followup in 2 weeks' time. TRANSINT:[id number] Voice Confirmation ID: [id number] DOCUMENT ID: [id number] MANUEL GOMEZ MD at 1138 CC: [id number] DICTATION DATE: 07/16/19917 DRILL DOCTOR: 07/16/19 1106 [facility] 07/16/19 [place] [address] [place] [id number]
== END 2019-07-16 10:00 | disposition home or self-care (01) ==
LOC: D.OPS 06:07 → D.PAN 12:50 → D.OPS 14:15
PROVIDERS: Anesthesiology; ATTEND Urology
DX: N39.41 Urge incontinence (principal)

== ENCOUNTER → 2019-08-12 12:05 | Outpatient (CLI) | payer MEDICARE, BC ==
[2019-07-16 07:01] VITALS: BMI 24.9
== END | disposition home or self-care (01) ==
LOC: D.CT 12:05
PROVIDERS: ATTEND Family Medicine
DX: R10.9 Unspecified abdominal pain (principal)

== ENCOUNTER 2020-12-20 06:23 | Inpatient (IN) | payer MEDICARE, BC ==
[~2020-12-20] VITALS: Ht 162.6 cm; Wt 57.6 kg
[~2020-12-20 06:23] MED LIST changes: +CARAFATE1 G PO; +CARAFATE1 G/10 ML PO; +PROTONIX40 MG PO
[2020-12-20] MEDS ORDERED: VITAMIN D325 MC1 PO (06:32)
[2020-12-20] MEDS ORDERED: ZOFRAN ODT4 MG/UDTAB PO (06:35)
[2020-12-20 07:16] LABS: BASOPHILS 0.2 % (0-2); EOSINOPHILS 0.6 % (0-7); HEMATOCRIT 31.4 % (36.0-48.0); HEMOGLOBIN 10.7 g/dL (12-16); IMMATURE GRANULOCYTES 0.2 % (0-5); LYMPHOCYTES 23.9 % (15-50); MCH 32.5 pg (26.0-34.0); MCHC 34.1 g/dL (31.0-37.0); MCV 95.4 fL (80.0-100.0); MEAN PLATELET VOLUME 9.3 fL (7.4-10.4); MONOCYTES 10.3 % (2-11); NEUTROPHIL ABS# 3.26 10x3/uL (1.56-6.13); NEUTROPHILS 64.8 % (40-80); PLATELET COUNT 235 10x3/uL (130-400); RBC 3.29 10x6/uL (4.00-5.40); RDW 14.8 % (11.5-14.5)
[2020-12-20 07:21] LABS: CALC OSMOLALITY 248 mosm/kg (275-300); CALCIUM 8.4 mg/dL (8.5-10.1); CARBON DIOXIDE 28.3 mmol/L (21.0-32.0); CHLORIDE - SERUM 90 mmol/L (98-107); CREATININE - SERUM 0.6 mg/dL (0.6-1.3); GLUCOSE 101 mg/dL (74-106); POTASSIUM - SERUM 3.2 mmol/L (3.5-5.1); SODIUM 124 mmol/L (136-145); UREA NITROGEN 9 mg/dL (7-18); eGFR NON AFRICAN AMERICAN > 90 mL/min (90-120)
[2020-12-20 07:38] LABS: ALBUMIN 3.3 g/dL (3.4-5.0); ALKALINE PHOSPHATASE 47 U/L (30-120); ALT (SGPT) 24 U/L (10-68); AMYLASE - SERUM 64 U/L (25-115); BILIRUBIN - TOTAL 0.89 mg/dL (0.2-1.3); CKMB 0.3 U/L (0.0-3.6); CREATINE KINASE 48 UL (21-215); LIPASE 159 U/L (73-393); PROTEIN - SERUM 6.5 g/dL (6.4-8.2); TROPONIN-I < 0.017 ng/mL (0.000-0.060)
--- NOTE | 2020-12-20 07:58 | NUR ---
URINE COLLECTED AND SENT TO THE LAB
[2020-12-20 08:40] LABS: BILIRUBIN NEGATIVE (NEGATIVE); KETONE NEGATIVE (NEGATIVE); NITRITE NEGATIVE (NEGATIVE); UROBILINOGEN NORMAL mg/dL (< 2)
[2020-12-20 08:44] LABS: BACTERIA MODERATE HPF (NONE SEEN); SQUAMOUS EPITHELIAL 0-5 HPF (0-4); WHITE CELLS - URINE OCC HPF (0-4)
[2020-12-20 14:39] VITALS: BP 144/57
[2020-12-20 17:46] VITALS: BP 146/52
[2020-12-20 20:28] VITALS: BP 147/54
[2020-12-20 22:52] VITALS: BP 142/55
--- NOTE | 2020-12-21 02:01 | NUR ---
REPORT TO KIRA ALEGRIA.
[2020-12-21 03:08] VITALS: BP 178/85; BMI 21.8
[2020-12-21 04:00] VITALS: BP 178/85
[2020-12-21 07:37] LABS: ALBUMIN 3.2 g/dL (3.4-5.0); ALKALINE PHOSPHATASE 45 U/L (30-120); ALT (SGPT) 22 U/L (10-68); CALC OSMOLALITY 262 mosm/kg (275-300); CALCIUM 8.2 mg/dL (8.5-10.1); CARBON DIOXIDE 25.6 mmol/L (21.0-32.0); CHLORIDE - SERUM 98 mmol/L (98-107); CREATININE - SERUM 0.5 mg/dL (0.6-1.3); GLUCOSE 92 mg/dL (74-106); MAGNESIUM - SERUM 1.8 mg/dL (1.8-2.4); POTASSIUM - SERUM 3.5 mmol/L (3.5-5.1); PROTEIN - SERUM 6.2 g/dL (6.4-8.2); SODIUM 131 mmol/L (136-145); eGFR NON AFRICAN AMERICAN > 90 mL/min (90-120)
[2020-12-21 07:38] LABS: UREA NITROGEN 12 mg/dL (7-18)
[2020-12-21 07:39] LABS: BASOPHILS 0.2 % (0-2); EOSINOPHILS 0.8 % (0-7); HEMATOCRIT 32.7 % (36.0-48.0); IMMATURE GRANULOCYTES 0.2 % (0-5); LYMPHOCYTE ABS# 1.07 10x3/uL (1.18-3.74); LYMPHOCYTES 18.1 % (15-50); MCH 32.5 pg (26.0-34.0); MCHC 33.6 g/dL (31.0-37.0); MCV 96.7 fL (80.0-100.0); MEAN PLATELET VOLUME 9.6 fL (7.4-10.4); MONOCYTES 9.8 % (2-11); NEUTROPHIL ABS# 4.19 10x3/uL (1.56-6.13); NEUTROPHILS 70.9 % (40-80); PLATELET COUNT 239 10x3/uL (130-400); RBC 3.38 10x6/uL (4.00-5.40); RDW 14.9 % (11.5-14.5); WBC 5.9 10x3/uL (4.8-10.8)
[2020-12-21 09:07] VITALS: BP 149/65
--- NOTE | 2020-12-21 10:31 | NUR ---
RESTING IN BED, NO DSITRESS NOTED, IV INFUSING PER RFA, CONT TO MONITOR NAUSEA
[2020-12-21 13:09] VITALS: BP 161/70
[2020-12-21 14:38] VITALS: Ht 162.6 cm; Wt 57.6 kg
[2020-12-21 17:22] VITALS: BP 153/70
--- NOTE | 2020-12-21 19:07 | NUR ---
SITTING IN BED AWAKE, ALERT, ORIENTED. C/O CONSTIPATION--WILL CONTACT PRASANNA. RESP EVEN AND UNLABORED ON RA. NS IN PROGRESS/ORDER TO LEFT FA W/O DIFFICULTY. NO DISTRESS NOTED. LOTION BROUGHT TO ROOM FOR C/O DRY SKIN.
[2020-12-21 20:00] VITALS: BP 189/77
--- NOTE | 2020-12-21 20:16 | NUR ---
MEDS ADMINISTERED/ORDER W/RESTORIL FOR SLEEP. SPOKE TO PRASANNA NEW ORDER FOR MIRALAX PLACED ON CHART GIVEN AT THIS TIME FOR C/O CONSTIPATION. PT DENIES ANY FURTHER NEEDS AT THIS TIME.
[2020-12-22 04:00] VITALS: BP 112/57
[2020-12-22 06:28] LABS: BASOPHILS 0.4 % (0-2); HEMATOCRIT 31.7 % (36.0-48.0); HEMOGLOBIN 10.5 g/dL (12-16); IMMATURE GRANULOCYTES 0.4 % (0-5); LYMPHOCYTE ABS# 1.17 10x3/uL (1.18-3.74); LYMPHOCYTES 23.9 % (15-50); MCH 32.3 pg (26.0-34.0); MCHC 33.1 g/dL (31.0-37.0); MCV 97.5 fL (80.0-100.0); MEAN PLATELET VOLUME 9.4 fL (7.4-10.4); MONOCYTES 11.2 % (2-11); NEUTROPHIL ABS# 3.03 10x3/uL (1.56-6.13); NEUTROPHILS 62.1 % (40-80); PLATELET COUNT 211 10x3/uL (130-400); RBC 3.25 10x6/uL (4.00-5.40); RDW 15.1 % (11.5-14.5); WBC 4.9 10x3/uL (4.8-10.8)
--- NOTE | 2020-12-22 06:30 | NUR ---
PT OUT IN MANNING CONFUSED, SEARCHING FOR HER DAUGHTER--REASSURED, REORIENTED. ASSISTED PT BACK INTO BED. ICE WATER BROUGHT TO ROOM/REQUEST. NO FURTHER NEEDS VOICED AT THIS TIME.
[2020-12-22 07:00] LABS: ALKALINE PHOSPHATASE 42 U/L (30-120); ALT (SGPT) 20 U/L (10-68); BILIRUBIN - TOTAL 0.95 mg/dL (0.2-1.3); CALC OSMOLALITY 264 mosm/kg (275-300); CALCIUM 8.1 mg/dL (8.5-10.1); CARBON DIOXIDE 26.8 mmol/L (21.0-32.0); CHLORIDE - SERUM 98 mmol/L (98-107); CREATININE - SERUM 0.6 mg/dL (0.6-1.3); GLUCOSE 88 mg/dL (74-106); MAGNESIUM - SERUM 1.8 mg/dL (1.8-2.4); POTASSIUM - SERUM 3.2 mmol/L (3.5-5.1); PROTEIN - SERUM 5.8 g/dL (6.4-8.2); SODIUM 133 mmol/L (136-145); UREA NITROGEN 13 mg/dL (7-18); eGFR NON AFRICAN AMERICAN > 90 mL/min (90-120)
[2020-12-22 08:17] VITALS: BP 120/50
[2020-12-22 12:56] VITALS: BP 142/52
[2020-12-22 16:14] VITALS: BP 133/73
[2020-12-22 20:00] VITALS: BP 114/57
[2020-12-23] VITALS: BP 99/49
[2020-12-23 04:00] VITALS: BP 105/64
[2020-12-23 06:37] LABS: BASOPHILS 0.4 % (0-2); EOSINOPHILS 2.6 % (0-7); HEMATOCRIT 31.4 % (36.0-48.0); HEMOGLOBIN 10.4 g/dL (12-16); IMMATURE GRANULOCYTES 0.4 % (0-5); LYMPHOCYTE ABS# 1.17 10x3/uL (1.18-3.74); LYMPHOCYTES 25.2 % (15-50); MCH 32.1 pg (26.0-34.0); MCHC 33.1 g/dL (31.0-37.0); MCV 96.9 fL (80.0-100.0); MEAN PLATELET VOLUME 9.2 fL (7.4-10.4); MONOCYTES 9.9 % (2-11); NEUTROPHIL ABS# 2.86 10x3/uL (1.56-6.13); NEUTROPHILS 61.5 % (40-80); PLATELET COUNT 221 10x3/uL (130-400); RBC 3.24 10x6/uL (4.00-5.40); RDW 15.4 % (11.5-14.5); WBC 4.7 10x3/uL (4.8-10.8)
[2020-12-23 07:08] LABS: ALBUMIN 2.8 g/dL (3.4-5.0); ALKALINE PHOSPHATASE 38 U/L (30-120); ALT (SGPT) 18 U/L (10-68); BILIRUBIN - TOTAL 0.79 mg/dL (0.2-1.3); CALC OSMOLALITY 266 mosm/kg (275-300); CALCIUM 7.9 mg/dL (8.5-10.1); CHLORIDE - SERUM 101 mmol/L (98-107); CREATININE - SERUM 0.5 mg/dL (0.6-1.3); GLUCOSE 91 mg/dL (74-106); MAGNESIUM - SERUM 2.2 mg/dL (1.8-2.4); POTASSIUM - SERUM 3.5 mmol/L (3.5-5.1); PROTEIN - SERUM 5.5 g/dL (6.4-8.2); SODIUM 134 mmol/L (136-145); UREA NITROGEN 11 mg/dL (7-18); eGFR NON AFRICAN AMERICAN > 90 mL/min (90-120)
[2020-12-23 09:21] VITALS: BP 133/58
--- NOTE | 2020-12-23 11:17 | NUR ---
Rehab Prescreening Consult recieved and the chart has been reviewed. She is a good ARU candidate, and will be accepted to the rehab if she is agreeable to participate in the required therapy, and physician feels she is medically stable. Sita Sampson RN Clinical Liaison, Rehab
[2020-12-23 13:06] VITALS: BP 128/56
--- NOTE | 2020-12-23 15:08 | MORECARE ---
CASE MANAGEMENT DISCHARGE SUMMARY PATIENT: HASMUKH RAYGOZA UNIT: [id number] ADM DATE: 12/20/20 AGE: 85 : 35 SEX: F ROOM/BED: D.2228 AUTHOR: LYNNE HIGGINS PHYSICIAN: REFERRING PHYSICIAN: SELENE CASTRO DO DATE OF SERVICE: 12/23/20 Discharge Plan Patient Name: HASMUKH RAYGOZA [facility] [facility] 1935 Planned Disposition: Home Anticipated Discharge Date: Discharge Date: Expected LOS: Initial Reviewer: [email or web address] Initial Review Date: 12/20/2020 Generated: 12/23/20 4:07 pm DCPIA - Discharge Planning Initial Assessment Updated by [email or web address]: Nela Carreon on 12/23/20 3:05 pm * Is the patient Alert and Oriented? Yes * PCP POTTER * Preadmission Environment Home with Family * ADLs Independent * Other Equipment CANE * Community resources currently utilized None * Additional services required to return to the preadmission environment? No * Can the patient safely return to the preadmission environment? Yes * Has this patient been hospitalized within the prior 30 days at any hospital? No Patient Name: HASMUKH RAYGOZA Page 25839 at 1508 All edits/amendments must be made on the electronic document DICTATION DATE: 12/23/20 1507 ENTERER: RUSS 12/23/20 1507 RPT#: [id number] CO DATE: STATUS: ADM IN [facility] [address] [place] [address] END OF REPORT
[2020-12-23] MEDS ORDERED: LEVOFLOXACIN500 MG PO (15:22)
--- NOTE | 2020-12-23 15:51 | MORECARE ---
CASE MANAGEMENT DISCHARGE SUMMARY PATIENT: HASMUKH RAYGOZA UNIT: [id number] ADM DATE: 12/20/20 AGE: 85 : 35 SEX: F ROOM/BED: D.2228 AUTHOR: LYNNE HIGGINS PHYSICIAN: REFERRING PHYSICIAN: SELENE CASTRO DO DATE OF SERVICE: 12/23/20 Discharge Plan Patient Name: HASMUKH RAYGOZA Facility: [facility]:[place] : 1935 Planned Disposition: Home Anticipated Discharge Date: Discharge Date: Expected LOS: Initial Reviewer: [email or web address] Initial Review Date: 12/20/2020 Generated: 12/23/20 4:51 pm Comments DCP- Discharge Planning Updated by [email or web address]: Nela Carreon on 12/23/20 2:[address] Patient Name: HASMUKH RAYGOZA Admission Status: ER Accout number: [id number] Admission Date: 12-20-2020 : 1935 Admission Diagnosis:HYPO-OSMOLALITY AND HYPONATREMIA Attending: SEELNE CASTRO Current LOS: 3 Anticipated DC Date: Planned Disposition: Home Primary Insurance: MEDICARE A & B Discharge Planning Comments: CM met with patient at bedside after obtaining verbal consent. CM discussed availability / needs of home health, REHAB and medical equipment. PATIENT STATES DOES NOT WANT TO GO TO INPATIENT REHAB. HER PLAN IS TO GO HOME. DECLINATION FOR REHAB AND HOME HEALTH SIGNED AND PLACED ON CHART. IMM SIGNED. PATIENT STATES DAUGHTER WILL PICK HER UP AT DC. CM TO FOLLOW AND ASSIST NEEDED. Pencil Sorter: Nela Carreon DCPIA - Discharge Planning Initial Assessment Updated by [email or web address]: Nela Carreon on 12/23/20 3:05 pm * Is the patient Alert and Oriented? Yes * PCP POTTER * Preadmission Environment Home with Family * ADLs Independent * Other Equipment CANE * Community resources currently utilized None * Additional services required to return to the preadmission environment? No * Can the patient safely return to the preadmission environment? Yes * Has this patient been hospitalized within the prior 30 days at any hospital? No Coverage Notice Reviewer: [email or web address] - Nela Carreon Notice Issued Date-Time: 12/23/2020 15:48 Notice Type: Patient Choice Letter Notice Delivered To: Patient Relationship to Patient: Trust Accounts Supervisor Name: Delivery Method: - Indy Days: Prior Verbal Notification: Recipient Understood Notice: Recipient Signature: Med Rec Note Co-signed by Attending: Coverage Notice Comment: REFUSAL OF INPATIENT REHAB AND HH Last DP export: 12/23/20 2:08 p Patient Name: HASMUKH RAYGOZA Page 18108 at 1551 All edits/amendments must be made on the electronic document DICTATION DATE: 12/23/20 155 HYPERTRICHOLOGIST: RUSS 12/23/20 155 RPT#: [id number] DC DATE: STATUS: ADM IN [facility] [address] [place] [address] END OF REPORT
--- NOTE | 2020-12-26 07:36 | MORECARE ---
CASE MANAGEMENT DISCHARGE SUMMARY PATIENT: HASMUKH RAYGOZA UNIT: [id number] ADM DATE: 12/20/20 AGE: 85 : 35 SEX: F ROOM/BED: D.2228 AUTHOR: LYNNE HIGGINS PHYSICIAN: REFERRING PHYSICIAN: SELENE CASTRO DO DATE OF SERVICE: 12/26/20 Discharge Plan Patient Name: HASMUKH RAYGOZA Facility: [facility]:[place] : 1935 Planned Disposition: Home Anticipated Discharge Date: Discharge Date: 12/23/2020 Expected LOS: Initial Reviewer: [id number] Initial Review Date: 12/20/2020 Generated: 12/26/20 8:36 am Comments DCP- Discharge Planning Updated by [email or web address]: Nela Carreon on 12/23/20 2:[address] Patient Name: HASMUKH RAYGOZA Admission Status: ER Accout number: [id number] Admission Date: 12-20-2020 : 1935 Admission Diagnosis:HYPO-OSMOLALITY AND HYPONATREMIA Attending: SELENE CASTRO Current LOS: 3 Anticipated DC Date: Planned Disposition: Home Primary Insurance: MEDICARE A & B Discharge Planning Comments: CM met with patient at bedside after obtaining verbal consent. CM discussed availability / needs of home health, REHAB and medical equipment. PATIENT STATES DOES NOT WANT TO GO TO INPATIENT REHAB. HER PLAN IS TO GO HOME. DECLINATION FOR REHAB AND HOME HEALTH SIGNED AND PLACED ON CHART. IMM SIGNED. PATIENT STATES DAUGHTER WILL P[place] HER UP AT [place]. CM TO FOLLOW AND ASSIST NEEDED. Special Client Bus Driver: Nela Carreon DCPIA - Discharge Planning Initial Assessment Updated by [email or web address]: Nela Carreon on 12/23/20 3:05 pm * Is the patient Alert and Oriented? Yes * PCP POTTER * Preadmission Environment Home with Family * ADLs Independent * Other Equipment CANE * Community resources currently utilized None * Additional services required to return to the preadmission environment? No * Can the patient safely return to the preadmission environment? Yes * Has this patient been hospitalized within the prior 30 days at any hospital? No Coverage Notice Reviewer: [id number] - Nela Carreon Notice Issued Date-Time: 12/23/2020 15:48 Notice Type: Patient Choice Letter Notice Delivered To: Patient Relationship to Patient: Golf Instructor Name: Delivery Method: - Indy Days: Prior Verbal Notification: Recipient Understood Notice: Recipient Signature: Med Rec Note Co-signed by Attending: Coverage Notice Comment: REFUSAL OF INPATIENT REHAB AND HH Last DP export: 12/23/20 2:51 p Patient Name: HASMUKH RAYGOZA Page [id number] at 0736 All edits/amendments must be made on the electronic document DICTATION DATE: 12/26/2036 DIRECTOR CHEMISTRY: RUSS 12/26/20 0736 RPT#: [id number] DC DATE:12/23/20 STATUS: DIS IN [facility] [address] [place] [address] END OF REPORT
== END 2020-12-23 16:43 | disposition home or self-care (01) | DRG 641 ==
LOC: D.ER 06:23 → D.EDHOLD 17:46 → D.MS 17:46
PROVIDERS: Family Medicine; ADMIT Family Medicine; ATTEND Family Medicine
DX: E87.1 Hypo-osmolality and hyponatremia (principal); R11.10 Vomiting, unspecified; I10 Essential (primary) hypertension; K21.9 Gastro-esophageal reflux disease without esophagitis; M32.9 Systemic lupus erythematosus, unspecified; Z86.73 Personal history of transient ischemic attack (TIA), and cerebral infarction without residual deficits; R53.1 Weakness

== ENCOUNTER 2020-12-30 08:25 | Emergency (ER) | payer MEDICARE, BC ==
[~2020-12-30] VITALS: Ht 162.6 cm; Wt 68.2 kg
[~2020-12-30 08:25] MED LIST changes: +LEVOFLOXACIN500 MG PO; +VITAMIN D325 MC1 PO
[2020-12-30 08:28] VITALS: Ht 162.6 cm; Wt 68.2 kg
[2020-12-30 09:00] LABS: BASOPHILS 0.3 % (0-2); EOSINOPHILS 1.7 % (0-7); HEMATOCRIT 33.1 % (36.0-48.0); HEMOGLOBIN 11.2 g/dL (12-16); IMMATURE GRANULOCYTES 0.3 % (0-5); LYMPHOCYTE ABS# 1.14 10x3/uL (1.18-3.74); LYMPHOCYTES 18.9 % (15-50); MCH 32.7 pg (26.0-34.0); MCHC 33.8 g/dL (31.0-37.0); MCV 96.5 fL (80.0-100.0); MEAN PLATELET VOLUME 9.3 fL (7.4-10.4); MONOCYTES 11.1 % (2-11); NEUTROPHIL ABS# 4.08 10x3/uL (1.56-6.13); NEUTROPHILS 67.7 % (40-80); PLATELET COUNT 211 10x3/uL (130-400); RBC 3.43 10x6/uL (4.00-5.40); RDW 15.1 % (11.5-14.5)
[2020-12-30 09:08] LABS: CALC OSMOLALITY 255 mosm/kg (275-300); CALCIUM 8.3 mg/dL (8.5-10.1); CARBON DIOXIDE 29.7 mmol/L (21.0-32.0); CHLORIDE - SERUM 96 mmol/L (98-107); CREATININE - SERUM 0.7 mg/dL (0.6-1.3); GLUCOSE 101 mg/dL (74-106); POTASSIUM - SERUM 3.5 mmol/L (3.5-5.1); SODIUM 128 mmol/L (136-145); UREA NITROGEN 10 mg/dL (7-18); eGFR NON AFRICAN AMERICAN 84 mL/min (90-120)
[2020-12-30 09:10] LABS: APTT 27.8 SECONDS (22.8-39.4); INR 1.16 (0.85-1.17); PROTIME 13.7 SECONDS (11.6-15.0)
[2020-12-30 09:25] LABS: ALKALINE PHOSPHATASE 54 U/L (30-120); ALT (SGPT) 22 U/L (10-68); BILIRUBIN - TOTAL 0.56 mg/dL (0.2-1.3); CREATINE KINASE 33 UL (21-215); PROTEIN - SERUM 6.2 g/dL (6.4-8.2); THYROID STIMULATING HORMONE 3.54 uIU/mL (0.36-3.74); TROPONIN-I < 0.017 ng/mL (0.000-0.060)
[2020-12-30 09:54] VITALS: BP 134/56
[2020-12-30 11:04] LABS: UDS - AMPHET NEGATIVE QUAL (NEGATIVE); UDS - BARB NEGATIVE QUAL (NEGATIVE); UDS - BENZO NEGATIVE QUAL (NEGATIVE); UDS - COCAINE NEGATIVE QUAL (NEGATIVE); UDS - OPIATE NEGATIVE QUAL (NEGATIVE); UDS - PCP NEGATIVE QUAL (NEGATIVE); UDS - THC NEGATIVE QUAL (NEGATIVE)
[2020-12-30 11:16] LABS: BILIRUBIN NEGATIVE (NEGATIVE); KETONE NEGATIVE (NEGATIVE); NITRITE NEGATIVE (NEGATIVE); UROBILINOGEN NORMAL mg/dL (< 2)
[2020-12-30 11:17] LABS: BACTERIA FEW HPF (NONE SEEN); WHITE CELLS - URINE RARE HPF (0-4)
== END 2020-12-30 12:25 | disposition home or self-care (01) ==
LOC: D.ER 08:25
PROVIDERS: Family Medicine
DX: R55 Syncope and collapse (principal); Z86.73 Personal history of transient ischemic attack (TIA), and cerebral infarction without residual deficits; I10 Essential (primary) hypertension; K21.9 Gastro-esophageal reflux disease without esophagitis; R53.1 Weakness

== ENCOUNTER → 2021-01-26 07:01 | Outpatient (CLI) | payer MEDICARE, BC ==
[2020-12-30 08:28] VITALS: BMI 25.8
== END | disposition home or self-care (01) ==
LOC: D.OPS 07:01
PROVIDERS: ATTEND Internal Medicine Gastroenterology
DX: R13.10 Dysphagia, unspecified (principal); R11.0 Nausea